=== PATIENT | male | born 1955 | race Caucasian/White ===

== ENCOUNTER → 2019-06-10 | Outpatient (CLI) | payer MEDICARE, BC ==
--- NOTE | 2019-06-10 19:15 | RADIOLOGY REPORT (SQ) ---
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 EXAM PARAMETERS: TECHNIQUE: Dynamic and static grayscale images acquired of the localized site of cl inical concern and recorded on PACS. Additional selected color Doppler and spectral images recorded. LIMITATIONS: None. FINDINGS: SKIN AND SUBCUTANEOUS TISSUES: Poorly defined heterogeneous nodules. There is 1 superior to the shoulder blade measuring 3.5 x 3.2 x 0.9 cm. There is 1 inferior to the shoulder blade measur ing 4.7 x 5.2 x 1.5 cm. These do not appear particularly vascular. DEEP SOFT TISSUES/MUSCLES: No masses. No fluid collections. No edema. VASCULAR: No increased or decreased vascularity. No occlusions. OTHER: No other significant finding. IMPRESSION: Nonspecific subcutaneous nodules. These do not obviously represent lipomas. TECHNICAL DOCUMENTATION: JOB ID: [id number] [employer]- All Rights Reserved Reading location - IP/workstation name: [email or web address]
== END ==
LOC: RAD 16:00
PROVIDERS: ATTEND Nurse Practitioner Family
DX: D17.1 Benign lipomatous neoplasm of skin and subcutaneous tissue of trunk (principal)
CPT/HCPCS: 76604